=== PATIENT | female | born 2000 | race Hispanic/Latino ===

== ENCOUNTER 2024-08-24 16:51 | Emergency (ER) | payer MEDICAID, SELFPAY ==
--- NOTE | ~2024-08-24 | XR_ITS ---
EXAMINATION: XR ankle LT min 3V DATE: 08/24/2024 17:17 INDICATION: Left ankle pain post injury TECHNIQUE: Anteroposterior, oblique, mortise, and lateral views of the left ankle were obtained. COMPARISON: None. FINDINGS: Alignment is normal. No fracture. Joint spaces are well maintained. No ankle joint effusion. Soft t issue swelling about the lateral malleolus. IMPRESSION: 1. No osseous abnormality. Reviewed, dictated and finalized at location A. IMPRESSION: 1. No osseous abnormality.
--- NOTE | ~2024-08-24 | XR_ITS ---
HISTORY: Proximal tib-fib tenderness to palpation COMPARISON: None TECHNIQUE: 2 views of the left lower leg were performed FINDINGS: No acute or subacute fracture. Joint spaces are preserved and alignment is maintained. Soft tissues are unremarkable without foreign body or significant calcification. Age-appropriate mineralization. IMPRESSION: No acute fracture or dislocation. Reviewed, dictated and finalized at location A.
[2024-08-24 16:54] VITALS: BP 136/82; PULSE 85; RESP 17; TEMP 36.4; O2SAT 100
--- NOTE | 2024-08-24 17:08 | ED_ITS ---
HPI - Extremity Injury (Lower) General Chief Complaint: Extremity Injury, Lower <Anette Palacios APRN - Last Filed: 08/24/24 17:14> Stated Complaint: left ankle pain, fall <Anette Palacios APRN - Last Filed: 08/24/24 17: 14> Time Seen by Provider: 08/24/24 17:00 <Anette Palacios APRN - Last Filed: 08/24/24 17:14> Focused HPI: Patient is a 23-year-old female who presents to the ER after injuring her left ankle. She reports she was stepping down the stairs when her left foot turned outward and heard 3 pops. Patient endorses decreased range of motion and describes the current pain as ?burning. She denies any medical history relevant to this ER visit. Patient denies any calf pain, decreased range of motion in her left knee, hip pain. GENERAL: Well-appearing, well-nourished, and in no acute distress. HEAD: Normocephalic, atraumatic. CHEST: Clear to auscultation. ?No respiratory distress. HEART: Regular rate and rhythm.? NEURO: ?Alert and oriented x3. Patient screened in triage and initial orders placed.? ?Additional care and disposition to be based upon?diagnostic testing and treatment. <Anette Palacios APRN - Last Filed: 08/24/24 17:14> Related Data Allergies/Adverse Reactions: Allergies Allergy/AdvReac Type Severity Reaction Status Date / Time No Known Drug Allergies Allergy Unknown Other Verified 02/28/19 12:00 <Anette Palacios APRN - Last Filed: 08/24/24 17:14> Review of Systems Review of Systems: All systems reviewed & are unremarkable except as noted in HPI and below <Randy Hurtado MD - Last Filed: 08/24/24 22:39> Exam Narrative: APPEARANCE: Well appearing, no pain, no distress, well-nourished. HEAD: normocephalic, atraumatic. EYES: PERRLA/EOMI, conjunctivae clear. NOSE: Normal no drainage EARS:TMS clear with good light reflex. THROAT: Pharynx clear, no exudate. NECK: Supple. No adenopathy, no masses. RESPIRATORY: Airway patent, respirations nonlabored. Clear to auscultation bilaterally, no rales, rhonchi, wheezing. CARDIOVASCULAR: Regular rate and rhythm without murmurs rubs or gallops. ABDOMINAL: Soft, nontender, nondistended, normal bowel sounds MUSCULOSKELETAL: Left lateral ankle fusion and tenderness to palpation <Randy Hurtado MD - Last Filed: 08/24/24 22:39> Course Vital Signs Vital signs: Vital Signs Temperature 97.5 F L 08/24/24 16:54 Pulse Rate 85 08/24/24 16:54 Respiratory Rate 17 08/24/24 16:54 Blood Pressure 136/82 08/24/24 16:54 Pulse Oximetry 100 08/24/24 16:54 Oxygen Delivery Room Air 08/24/24 16:54 Temperature 97.5 F L 08/24/24 16:54 Pulse Rate 78 08/24/24 21:44 Respiratory Rate 18 08/24/24 21:44 Blood Pressure 130/64 08/24/24 21:44 Pulse Oximetry 100 08/24/24 21:44 Oxygen Delivery Room Air 08/24/24 16:54 <Anette Palacios, JULEE - Last Filed: 08/24/24 17:14> Vital Signs Temperature 97.5 F L 08/24/24 16:54 Pulse Rate 85 08/24/24 16:54 Respiratory Rate 17 08/24/24 16:54 Blood Pressure 136/82 08/24/24 16:54 Pulse Oximetry 100 08/24/24 16:54 Oxygen Delivery Room Air 08/24/24 16:54 Temperature 97.5 F L 08/24/24 16:54 Pulse Rate 78 08/24/24 21:44 Respiratory Rate 18 08/24/24 21:44 Blood Pressure 130/64 08/24/24 21:44 Pulse Oximetry 100 08/24/24 21:44 Oxygen Delivery Room Air 08/24/24 16:54 <Randy Hurtado MD - Last Filed: 08/24/24 22:39> MDM - Extremity Injury (Lower) MDM Narrative Medical decision making narrative: 23-year-old female presents emergency department for evaluation left ankle pain. X-ray of the ankle showed no acute osseous abnormality. Patient did have proximal tib-fib tenderness. X-ray was negative for acute fracture dislocation. Patient was provided Larry wrap for increased support and crutches for nonweightbearing. <Randy Hurtado MD - Last Filed: 08/24/24 22:39> Differential Diagnosis Differential diagnosis: Likely ankle sprain and strain <Randy Hurtado MD - Last Filed: 08/24/24 22:39> Discharge Plan Discharge Clinical Impression: Ankle sprain and strain <Anette Palacios APRN - Last Filed: 08/24/24 17:14> Patient Disposition: Home, Self-Care <Anette Palacios APRN - Last Filed: 08/24/24 17:14> Condition: Stable <Anette Palacios APRN - Last Filed: 08/24/24 17:14> Instructions: Antibiotic Form, Ankle Sprain (DC), Crutch Instructions (ED) <Anette Palacios APRN - Last Filed: 08/24/24 17:14> Additional Instructions: Tylenol and ibuprofen for pain control. Crutches for limited weight- bearing. Larry wrap for comfort. Have close follow-up with your primary care physician. If you have any worsening symptoms then please call or return to the emergency department. <Anette Palacios APRN - Last Filed: 08/24/24 17:14> Patient Language: Ivorian <Anette Palacios APRN - Last Filed: 08/24/24 17:14> Follow-up/Referrals: PHYSICIAN,BIODIESEL TECHNOLOGY MANAGER [Primary Care Provider] - <Anette Palacios APRN - Last Filed: 08/24/24 17:14>
--- OUTSIDE RECORDS SUMMARY | 2024-08-24 18:55 | XMS_ITS | Clinical Summary ---
Author Organization [facility] Address [address] [place] [address] Care Team Providers Care Supervisor Die Casting Name Role Phone No, Physician Primary Care Provider [phone] Allergies Active Allergy Reactions Criticality Noted Date Comments Naproxen Hives Medium 01/25/2018 Medications traMADoL (ULTRAM) 50 mg tablet Take 1 tablet (50 mg total) by mouth every 6 (six) hours 20 tablet 0 Active EPINEPHrine (EpiPen) 0.3 mg/0.3 mL auto-injection syringeIndicati ons:Anaphylaxis Inject 0.3 mL (0.3 mg total) into the muscle as instructed as needed for anaphylaxis for up to 1 dose 1 Syringe 1 0 Active EPINEPHrine 0.3 mg/0.3 mL auto-injection syringeIndicati ons:Anaphylaxis Inject to outer thigh as needed for severe allergic reaction (examples, but not limited to: difficulty breathing, throat swelling) 2 Syringe 1 Active EPINEPHrine (EpiPen) 0.3 mg/0.3 mL auto-injection syringeIndicati ons:Anaphylaxis Inject 0.3 mL (0.3 mg total) into the muscle as instructed as needed for anaphylaxis 1 each 1 Active predniSONE (DELTASONE) 10 mg tablet Take 2 tablets (20 mg) by mouth daily 10 tablet 1 Active EPINEPHrine (EpiPen) 0.3 mg/0.3 mL auto-injection syringeIndicati ons:Anaphylaxis Inject 0.3 mL (0.3 mg total) into the muscle as instructed as needed for anaphylaxis 2 each 1 Active azithromycin (ZITHROMAX) 250 mg tabletIndicatio ns:Pneumonia, Community Acquired Take 1 tablet (250 mg total) by mouth daily Take first 2 tablets together, then 1 every day until finished. 6 tablet 3 Active dextromethorpha n-guaiFENesin (ROBITUSSIN-DM) 2-20 mg/mL liquid Take 5 mL by mouth every 12 (twelve) hours 120 mL 3 Active Active Problems No known active problems Surgical History Surgery Date Site/Laterality Comments CHOLECYSTECTOMY SECTION Medical History Medical History Date Comments Known health problems: none Social History Tobacco Use Types Packs/Day Years Used Date Smoking Tobacco: Never Smokeless Tobacco: Never Alcohol Use Standard Drinks/Week Comments Yes 0 (1 standard drink = 0.6 oz pur e alcohol) Personal Safety Answer Date Recorded Getting School Help Needed Not on file 03/15 Comments No Sex and Gender Information Value Date Recorded Sex Assigned at Not on file 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 Gender Identity Not on file Sexual Orientation Not on file Obstetrics History Last Filed Vital Signs Vital Sign Reading Time Taken Comments Blood Pressure 137/85 03/08/2023 5:26 PM CDT Pulse 78 03/08/2023 5:26 PM CDT Temperature 36.2 C (97.2 F) 03/08/2023 5:26 PM CDT Respiratory Rate 16 03/08/2023 5:26 PM CDT Oxygen Saturation 98% 03/08/2023 5:26 PM CDT Inhaled Oxygen Concentration - - Weight 86.2 kg (190 lb) 03/08/2023 12:03 PM CDT Height 154.9 cm (5' 1 ) 03/08/2023 12:03 PM CDT Body Mass Index 35.9 03/08/2023 12:03 PM CDT Plan of Treatment Health Maintenance Due Date Last Done Comments Cervical Cancer Screening 1998 Depression Screening 1998 Hepatitis C Screening 1998 Regular Well Visit/Exam 18-64 2016 Influenza Vaccine (#1) 2024 9, 05/15/2017, 06/15/2016, Additional history exists DTaP/Tdap/Td Vaccine (8 - Td or Tdap) 06/14/2026 06/14/2016, 10/04/2012, 01/28/2003, Additional history exists Hepatitis B Screening Completed 09/12/1999 , 09/12/1999, 09/12/1999, Additional history exists Varicella Vaccines Completed 11/03/2003, 09/12/1999 HPV Vaccines Completed 08/26/2013, 08/08, 11/07/2012, Additional history exists Pneumococcal vaccine <65 Aged Out No longer eligible based on patient's age to complete this topic Insurance [facility] MEDICAID [facility] OTHER Address: [address] [address] [place] [address] [facility]FL [facility] CHOICE PLUS Care Teams Supervisor Die Casting Relationship Specialty Start Date End Date No, Physician PCP - General 05/16/18
--- OUTSIDE RECORDS SUMMARY | 2024-08-24 18:55 | XMS_ITS | Encounter Summary ---
Author Organization [facility] Address [address] [place] [address] Care Team Providers Care Director Of Recruiting Name Role Phone Montez External Provider Primary Care Provider Hua loredo Encounter Details Date Type Department Care Team (Late st Contact Info) Description 01/28/2003 Outpatient Historical [facility] Family Medicine [facility] [address] [facility] [address] [place] [address] [place] [address] 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
--- OUTSIDE RECORDS SUMMARY | 2024-08-24 18:55 | XMS_ITS | Referral Summary ---
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 CHOICE PLUS [facility] HMO/PPO Address: [address] [address] [place] [address] Care Teams Service Provider Relationship Specialty Start Date End Date No, Physician PCP - General 05/16/18
--- OUTSIDE RECORDS SUMMARY | 2024-08-24 18:55 | XMS_ITS | Encounter Summary ---
Author Organization [facility] Address [address] [place] [address] Care Team Providers Care Director Power Name Role Phone [facility], External Provider Primary Care Provider Hua loredo Encounter Details Date Type Department Care Team (Late st Contact Info) Description 12/16/2006 Outpatient Historical [facility] Family Medicine [facility] [address] [facility] [address] [place] [address] Jeanine Adams MD [address] [place] [address] [place] [address] Social History Tobacco Use Types Packs/Day Years Used Date Smoking Tobacco: Never Assessed Comments Unknown Sex and Gender Information Value Date Recorded Sex Assigned at Not on file Legal Sex Female 4:16 AM 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
--- OUTSIDE RECORDS SUMMARY | 2024-08-24 18:55 | XMS_ITS | Encounter Summary ---
Author Organization [email or web address] Address 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
--- OUTSIDE RECORDS SUMMARY | 2024-08-24 18:55 | XMS_ITS | Encounter Summary ---
Author Organization [employer] Address [address] [place] [address] Care Team Providers Care Ward Nurse Name Role Phone [facility] Primary Care Provider Hua loredo Encounter Details Date Type Department Care Team (Late st Contact Info) Description 10/13/2008 Outpatient Historical [place] [address] [place] [address] Social History Tobacco Use Types Packs/Day Years Used Date Smoking Tobacco: Never Alcohol Use Standard Drinks/Week Comments No 0 (1 standard drink = 0.6 oz pur e alcohol) Comments No Sex and Gender Information Value Date Recorded Sex Assigned at Not on file 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
--- OUTSIDE RECORDS SUMMARY | 2024-08-24 18:55 | XMS_ITS | Encounter Summary ---
Author Organization [facility] Address [address] [place] [address] Care Team Providers Care Global Transportation Manager Name Role Phone [facility], [facility] Provider Primary Care Provider Hua loredo Encounter Details Date Type Department Care Team (Late st Contact Info) Description 11/03/2003 Outpatient Historical [facility] Medicine [facility] [address] [facility] [address] [place] [address] [place] [address] [place] [address] Social History Tobacco Use Types Packs/Day Years Used Date Smoking Tobacco: Never Assessed Comments Unknown Sex and Gender Information Value Date Recorded Sex Assigned at Not on file Legal Sex Female 4:16 AM EQUINE BREEDER Gender Identity Not on file Sexual Orientation Not on file documented as of this encounter Plan of Treatment Not on file documented as of this encounter Procedures Procedure Name Priority Date/Time Associated Diagnosis Comments CHG VARICELLA VACCINE LIVE SQ VFC 11/03/2003 12:00 AM CDT documented in this encounter Visit Diagnoses Not on filedocumented in this encounter Care Teams Global Transportation Manager Relationship Specialty Start Date End Date Montez, External [place] [address] PCP - General 04/05/17 documented as of this encounter
--- OUTSIDE RECORDS SUMMARY | 2024-08-24 18:55 | XMS_ITS | Encounter Summary ---
Author Organization [employer] Address [address] [place] [address] Care Team Providers Care Candy Dipper Hand Name Role Phone 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 Gender Identity Not on file Sexual Orientation Not on file documented as of this encounter Plan of Treatment Not on file documented as of this encounter Procedures Procedure Name Priority Date/Time Associated Diagnosis Comments CBC WITH DIFFERENTIAL Routine 12/18/2006 3:59 PM CDT CBC WITH DIFFERENTIAL Routine 12/18/2006 3:59 PM CDT CBC WITH DIFFERENTIAL Routine 12/18/2006 3:59 PM CDT URINALYSIS WITH MICROSCOPIC Routine 12/18/2006 3:39 PM CDT documented in this encounter Results * (ABNORMAL) CBC WITH DIFFERENTIAL (12/18/2006 3:59 PM CDT) NEUTROPHIL ABSOLUTE 6.83 K/uL INTERFACE SYSTEM LYMPHOCYTE ABSOLUTE 3.04 K/uL INTERFACE SYSTEM MONOCYTE ABSOLUTE 0.11 K/uL INTERFACE SYSTEM EOSINOPHIL ABSOLUTE 0.53 K/uL INTERFACE SYSTEM BASOPHILS ABSOLUTE 0.00 K/uL INTERFACE SYSTEM NEUTROPHILS, SEG 64 36 - 74 % INTERFACE SYSTEM BANDS 1 0 - 4 % INTERFACE SYSTEM LYMPHOCYTES 28 18 - 53 % INTERFAC E SYSTEM MONOCYTES 1(L) 2 - 13 % INTERFACE SYSTEM EOSINOPHILS 5 2 - 12 % INTERFAC E SYSTEM BASOPHILS 0 0 - 3 % INTERFACE SYSTEM ATYPICAL LYMPHOCYTE 1 0 - 5 % INTERFACE SYSTEM PLATELET EST. Consistent w/ count Normal INTERFACE SYSTEM RBC MORPHOLOGY Normal Normal INTER FACE SYSTEM 12/18/2006 3:59 PM CDT Carmen Mary MD HEMATOLOGY ORDERABLES Edit ed Performing Organization Address [facility] de Phone Number INTERFACE SYSTEM Refer to clinic/hospital department * CBC WITH DIFFERENTIAL (12/18/2006 3:59 PM CDT) [facility] NRBC 0 <=0 /100 WBC INTERFACE SYSTEM 12/18/2006 3:59 PM CDT us Carmen Mary MD HEMATOLOGY ORDERABLES Edit ed Performing Organization Address [facility] Phone Number INTERFACE SYSTEM Refer to clinic/hospital department * (ABNORMAL) CBC WITH DIFFERENTIAL (12/18/2006 3:59 PM CDT) [facility] WBC 10.5 4.5 - 13.5 K/uL INTERFACE SYSTEM RBC 5.29(H) 4.00 - 5.20 M/uL INTERFACE SYSTEM HEMOGLOBIN 15.2 11.5 - 15.5 g/dL INTERFACE SYSTEM HEMATOCRIT 41.6 35.0 - 45.0 % INTERFACE SYSTEM MCV 78.6 77.0 - 95.0 fL INTERFACE SYSTEM MCH 28.7 24.0 - 30.0 pg INTERFACE SYSTEM MCHC 36.5(H) 30.0 - 36.0 % INTERFACE SYSTEM RDW 12.7 11.5 - 14.5 % INTERFACE SYSTEM RDW-STDEV 35.9(L) 37.1 - 48.7 fL INTERFACE SYSTEM PLATELETS 360(H) 140 - 350 K/uL INTERFACE SYSTEM MPV 9.9 9.3 - 12.4 fL INTERFACE SYSTEM 12/18/2006 3:59 PM CDT Carmen Mary MD HEMATOLOGY ORDERABLES Edit ed Performing Organization Address [facility] Co de Phone Number INTERFACE SYSTEM Refer to clinic/hospital department * (ABNORMAL) URINALYSIS WITH MICROSCOPIC (12/18/2006 3:39 PM CDT) COLOR UA Yellow INTERFACE SYSTEM CLARITY UA Cloudy(A) Clear INTERFACE SYSTEM SPECIFIC GRAVITY UA 1.023 1.001 - 1.035 INTERFACE SYSTEM PH UA 8.0 5.0 - 8.0 INTERFACE SYSTEM LEUKOCYTE ESTERASE UA Trace(A) Negative INTERFACE SYSTEM NITRITE UA Negative Negative INTERFACE SYSTEM PROTEIN UA Trace(A) Negative INTERFACE SYSTEM GLUCOSE UA Negative Negative INTERFACE SYSTEM KETONES UA Negative Negative INTERFACE SYSTEM UROBILINOGEN UA <1 <=1 mg/dL INTE RFACE SYSTEM BILIRUBIN UA Negative Negative INTERFA CE SYSTEM BLOOD UA Negative Negative INTERFACE SYSTEM WBC UA 4 0 - 5 /HPF INTERFACE SYSTEM RBC UA 4 0 - 4 /HPF INTERFACE SYSTEM AMORPHOUS CRYSTAL Rare /HPF INTERFACE SYSTEM 12/18/2006 3:39 PM CDT Carmen Mary MD URINE ORDERABLES Edited Performing Organization Address [facility] Co de Phone Number INTERFACE SYSTEM Refer to clinic/hospital department documented in this encounter Visit Diagnoses Diagnosis Abdominal pain, unspecified site- Primary documented in this encounter Care Teams Candy Dipper Hand Relationship Specialty Start Date End Date [facility], External Provider [address] [place] [address] PCP - General 04/05/17 documented as of this encounter
--- OUTSIDE RECORDS SUMMARY | 2024-08-24 18:55 | XMS_ITS | Encounter Summary ---
Author Organization [facility] Address [address] [place] [address] Care Team Providers Care Pitch Flaker Name Role Phone [facility] External Provider Primary Care Provider Hua loredo Encounter Details Date Type Department Care Team (Late st Contact Info) Description 12/16/2006 Outpatient Historical [facility] Family Medicine [facility] [address] [place] [address] Jeanine Adams MD [address] [place] [address] [place] [address] Social History Tobacco Use Types Packs/Day Years Used Date Smoking Tobacco: Never Assessed Comments Unknown Sex and Gender Information Value Date Recorded Sex Assigned at Not on file 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
--- OUTSIDE RECORDS SUMMARY | 2024-08-24 18:55 | XMS_ITS | Encounter Summary ---
Author Organization [employer] Address [address] [place] [address] Care Team Providers Care Political Anthropologist Name Role Phone 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, External Provider [address] [place] [address] PCP - General 04/05/17 documented as of this encounter
--- OUTSIDE RECORDS SUMMARY | 2024-08-24 18:55 | XMS_ITS | Encounter Summary ---
Author Organization [facility] Address [address] [place] [address] Care Team Providers Care Rn Home Care Name Role Phone [facility], External Provider Primary Care Provider Hua loredo Encounter Details Date Type Department Care Team (Late st Contact Info) Description 10/23/2005 Outpatient Historical [facility] Medicine [facility] [address] [facility] [address] [place] [address] Melissa Vásquez MD [address] [place] [address] Social History Tobacco Use Types Packs/Day Years Used Date Smoking Tobacco: Never Assessed Comments Unknown Sex and Gender Information Value Date Recorded Sex Assigned at Not on file 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 Gender Identity Not on file Sexual Orientation Not on file documented as of this encounter Last Filed Vital Signs Vital Sign Reading Time Taken Comments Blood Pressure - - Pulse - - Temperature 37.1 C (98.7 F) 10/23/2005 11:30 AM CDT Respiratory Rate - - Oxygen Saturation - - Inhaled Oxygen Concentration - - Weight 32.7 kg (72 lb) 10/23/2005 11:30 AM CDT Height - - Body Mass Index - - documented in this encounter Plan of Treatment Not on file documented as of this encounter Visit Diagnoses Not on filedocumented in this encounter Care Teams Rn Home Care Relationship Specialty Start Date End Date Leana, External Provider [address] [place] [address] PCP - General 04/05/17 documented as of this encounter
--- OUTSIDE RECORDS SUMMARY | 2024-08-24 18:55 | XMS_ITS | Clinical Summary ---
Author Organization [facility] Address [address] [place] [address] Care Team Providers Care Systems Navigator Name Role Phone [facility], External Provider Primary Care Provider U navailable Allergies Active Allergy Reactions Criticality Noted Date Comments Naproxen Sodium Hives High 06/23/2017 Medications No known medications Active Problems Problem Noted Date Diagnosed Date Bilateral ovarian cysts 12/24/2011 Grief 12/07/2011 Overview (12/07/2011): 12/06/11 - father recently from liver cancer Depression 12/07/2011 Abdominal pain, generalized 12/07/2011 Trigger point with back pain 12/07/2011 Family history of liver cancer 07/13/2011 Overview (07/13/2011): Father diagnosed with terminal liver cancer at age 38 Heartburn 07/13/2011 Allergic rhinitis 07/14/2008 Eczema 07/14/2008 Resolved Problems Problem Noted Date Diagnosed Date Resolved Date Pain in joint, shoulder region 04/04/2011 07/13/2011 Headache(784.0) 07/14/2008 07/13/2011 Urinary tract infection, site not specified 12/30/2006 07/13/2011 Need for prophylactic vaccin ation and inoculation against viral hepatitis 12/16/200609/2008 Need for other specified pro phylactic vaccination against single bacterial disease 12/16/2006 07/14/2008 Routine or child health check 10/11/2004 07/14/2008 Immunizations Immunization Administration Dates Next Due (GARDASIL)(9-45 YRS) HUMAN PAPILLOMAVIRUS VACCINE, TYPES 6, 11, 16, 18, QUADRIVALENT (4VHPV), 3 DOSE, IM 07/13/2011 (HAVRIX/VAQTA)(12 MO-18 YRS) HEPATITIS A VACCINE 0.5 ML PED/ADOL 2 DOSE, IM 07/13/2011,12/16/2006 (INFANRIX)(6 WKS-6 YRS) DIPT HERIA, TETANUS TOXOIDS, AND ACCELLULAR PERTUSSIS VACCINE (DTAP), 0.5 ML IM 01/28/2003,11/11/2000,03/13/1999,01/27,1998 (IPOL)(6 WKS AND UP) POLIOVI DONNA VACCINE, INACTIVATED (IPV), 3 DOSE, SUBCUT OR IM 01/28/2003,09/12/1999,01/27/1999,11/09 (M-M-R II/PRIORIX)(12 MO UP) MEASLES, MUMPS AND RUBELLA VIRUS VACCINE, 0.5 ML IM/SUBCUT 01/28/2003,09/12/1999 (VARIVAX)(12 MOS UP)VARICELL A VIRUS VACCINE (PF) 0.5 ML, SUB CUT 11/03/2003,09/12/1999 HIB, Unspecified Formulation 11/11/2000, 03/13/1999,01/27/1999,11/09 Hepatitis B Vaccine 09/12/1999,1998,1998 Family History Medical History Relation Name Comments Healthy Brother Cancer Father liver cancer Liver Disease Father Healthy Mother Healthy Sister Relation Name Status Comments Brother Alive Father Mother Alive Sister Alive Social History Tobacco Use Types Packs/Day Years Used Date Smoking Tobacco: Never Smokeless Tobacco: Never Alcohol Use Standard Drinks/Week Comments No 0 (1 standard drink = 0.6 oz pur e alcohol) Comments No Sex and Gender Information Value Date Recorded Sex Assigned at Not on file Legal Sex Female 4:16 AM CASUALTY 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 SUPERVISOR Gender Identity Not on file Sexual Orientation Not on file Occupation Industry Job Start Date Job End Date Not on file Not on file Not on file Not on file Last Filed Vital Signs Vital Sign Reading Time Taken Comments Blood Pressure 128/66 06/23/2017 3:45 PM CASUALTY CLAIMS SUPERVISOR Pulse 86 04/05/2017 9:11 AM CDT Temperature 36.6 C (97.8 F) 06/23/2017 12:24 PM CASUALTY CLAIMS SUPERVISOR Respiratory Rate 16 06/23/2017 3:45 PM CASUALTY CLAIMS SUPERVISOR Oxygen Saturation 99% 06/23/2017 3:45 PM CASUALTY CLAIMS SUPERVISOR Inhaled Oxygen Concentration - - Weight 83 kg (183 lb) 06/23/2017 12:24 PM CASUALTY CLAIMS SUPERVISOR Height 154.9 cm (5' 1 ) 06/23/2017 12:24 PM CASUALTY CLAIMS SUPERVISOR Body Mass Index 34.58 06/23/2017 12:24 PM CASUALTY CLAIMS SUPERVISOR Plan of Treatment Health Maintenance Due Date Last Done Comments DTAP/TDAP/TD VACCINES (6 - Tdap) 2009 01/28/2003, 11/11/2000, 03/13/1999, Additional history exists HPV VACCINES (2 - 2-dose series) 01/11/2012 07/13/19 12 CERVICAL CANCER SCREENING 09/04/2019 INFLUENZA VACCINE (#1) 2024 HEPATITIS B VACCINES Completed 09/12/1999, 1998, 1998 Advance Directives For more information, please contact: [phone] * Full Code (Latest Code Status on File) Date Activated Date Inactivated Comments 01/04/2012 10:25 AM 01/07/2012 11:50 AM Care Teams Systems Navigator Relationship Specialty Start Date End Date [facility], External Provider [address] [place] [address] PCP - General 04/05/17
--- OUTSIDE RECORDS SUMMARY | 2024-08-24 18:55 | XMS_ITS | Encounter Summary ---
Author Organization [facility] [facility] Address [address] [place] [address] Care Team Providers Care Wood Experimental Mechanic Name Role Phone [facility] External Provider Primary Care Provider Hua loredo Encounter Details Date Type Department Care Team (Late st Contact Info) Description 09/02/2000 Outpatient Historical [facility] [place] [address] [place] [address] Social History Tobacco Use Types Packs/Day Years Used Date Smoking Tobacco: Never Assessed Comments Unknown Sex and Gender Information Value Date Recorded Sex Assigned at Not on file Legal Sex Female 4:16 AM QA LEAD Gender Identity Not on file Sexual Orientation Not on file documented as of this encounter Plan of Treatment Not on file documented as of this encounter Visit Diagnoses Not on filedocumented in this encounter Care Teams Wood Experimental Mechanic Relationship Specialty Start Date End Date [facility], External Provider [address] [place] [address] PCP - General 04/05/17 documented as of this encounter
--- OUTSIDE RECORDS SUMMARY | 2024-08-24 18:55 | XMS_ITS | Encounter Summary ---
Author Organization [facility] Address [address] [place] [address] Care Team Providers Care Hotel Or Motel Manager Name Role Phone Leana External Provider Primary Care Provider Hua loredo Encounter Details Date Type Department Care Team (Late st Contact Info) Description 06/02/2002 Outpatient Historical [facility] Indu Bliss MD NO ADDRESS ON FILE Er, Authorized P NO ADDRESS ON FILE FEVER (Primary Dx) Social History Tobacco Use Types Packs/Day Years Used Date Smoking Tobacco: Never Assessed Comments Unknown Sex and Gender Information Value Date Recorded Sex Assigned at Not on file Legal Sex Female 4:16 AM E MAIL SYSTEM ADMINISTRATOR Gender Identity Not on file Sexual Orientation Not on file documented as of this encounter Plan of Treatment Not on file documented as of this encounter Visit Diagnoses Diagnosis Fever and other physiologic disturbances of temperature regulation- Primary documented in this encounter Care Teams Hotel Or Motel Manager Relationship Specialty Start Date End Date Leana External Provider [address] [place] [address] PCP - General 04/05/17 documented as of this encounter
--- OUTSIDE RECORDS SUMMARY | 2024-08-24 18:55 | XMS_ITS | Encounter Summary ---
Author Organization [facility] Address [address] [place] [address] Care Team Providers Care Nursery School Teacher Name Role Phone [facility], External Provider Primary Care Provider Hua loredo Encounter Details Date Type Department Care Team (Late st Contact Info) Description 11/04/1999 Outpatient Historical [facility] Rafal Ahuja MD [address] [facility] [address] [place] [address] Er, Authorized P NO ADDRESS ON FILE Unspecified viral infection, in conditions classified elsewhere and of unspecified site (Primary Dx) Social History Tobacco Use Types Packs/Day Years Used Date Smoking Tobacco: Never Assessed Comments Unknown Sex and Gender Information Value Date Recorded Sex Assigned at Not on file Legal Sex Female 4:16 AM RN CASE MANAGER Gender Identity Not on file Sexual Orientation Not on file documented as of this encounter Plan of Treatment Not on file documented as of this encounter Visit Diagnoses Diagnosis Unspecified viral infection, in conditions classified elsewhere and of unspecified site- Primary documented in this encounter Care Teams Nursery School Teacher Relationship Specialty Start Date End Date Leana, External Provider [address] [place] [address] PCP - General 04/05/17 documented as of this encounter
--- OUTSIDE RECORDS SUMMARY | 2024-08-24 18:55 | XMS_ITS | Encounter Summary ---
Author Organization [facility] Address [address] [place] [address] Care Team Providers Care Rn Research Name Role Phone [facility] Primary Care Provider Hua loredo Encounter Details Date Type Department Care Team (Late st Contact Info) Description 01/28/2003 Outpatient Historical [facility] Family Medicine [facility] [address] [address] [facility] [address] [place] [address] [place] [address] [address] [facility] [place] [address] Social History Tobacco Use Types Packs/Day Years Used Date Smoking Tobacco: Never Assessed Comments Unknown Sex and Gender Information Value Date Recorded Sex Assigned at Not on file Legal Sex Female 4:16 AM DOCUMENT CONTROL MANAGER Gender Identity Not on file Sexual Orientation Not on file documented as of this encounter Plan of Treatment Not on file documented as of this encounter Procedures Procedure Name Priority Date/Time Associated Diagnosis Comments CHG MMR VACCINE SQ VFC 01/28/2003 12:00 AM CDT CHG DTAP VACCINE <7 YO IM VFC 01/28/2003 12:00 AM CDT documented in this encounter Visit Diagnoses Not on filedocumented in this encounter Care Teams Rn Research Relationship Specialty Start Date End Date [facility], [place] [address] [place] [address] PCP - General 04/05/17 documented as of this encounter
--- OUTSIDE RECORDS SUMMARY | 2024-08-24 18:55 | XMS_ITS | Encounter Summary ---
Author Organization [facility] Address [address] [place] [address] Care Team Providers Care Ophthalmic Asst Name Role Phone [facility] External Provider Primary Care Provider Hua loredo Encounter Details Date Type Department Care Team (Late st Contact Info) Description 07/13/2002 Outpatient Historical [facility] Family Medicine [facility] [address] [facility] [address] [place] [address] [place] [address] [place] [address] Social History Tobacco Use Types Packs/Day Years Used Date Smoking Tobacco: Never Assessed Comments Unknown Sex and Gender Information Value Date Recorded Sex Assigned at Not on file Legal Sex Female 4:16 AM HOSPITALITY HOUSEKEEPER Gender Identity Not on file Sexual Orientation Not on file documented as of this encounter Plan of Treatment Not on file documented as of this encounter Visit Diagnoses Not on filedocumented in this encounter Care Teams Ophthalmic Asst Relationship Specialty Start Date End Date Leana, External [place] [address] PCP - General 04/05/17 documented as of this encounter
--- OUTSIDE RECORDS SUMMARY | 2024-08-24 18:55 | XMS_ITS | Data Portability ---
Author Organization [facility] SAMANTHAKaterin Skelton Address [address] [facility] [place] [address] Care Team Providers Care Eligibility Specialist Name Role Phone LENNIE CHAMPION Primary Care Provider [phone] Assessment No assessment recorded. Plan of Treatment Reminders Order Date Submit Date Provider Last Modified By Organization Details Last Modified Time Details Appointments None recorded. Lab HbA1c (hemoglobin A1c), blood 2014 015 MARTY LAU, Jaycee arcadio Bagley, [facility] [address], [place], [address], 5 07:43:20 TSH + free T4, serum 2014 015 MARTY LAU, Jaycee arcadio Bagley, [address], [place], [address], 5 07:43:17 cholesterol + triglycerid es, serum 2014 015 MARTY LAU, Jaycee arcadio Bagley, [facility] [address], [place], [address], 5 07:43:19 CBC 2014 015 MARTY LAU, Jaycee arcadio Bagley, [address], [place], [address], 5 07:43:18 CMP, serum or plasma 2014 015 [facility], [address], [place], [address], 5 07:43:19 Referral pediatric neurologist referral 2014 015 [email or web address] [facility] ([facility]), [address] [place], [address], 5 09:05:22 Procedures None recorded. Surgeries None recorded. Imaging CT, head and brain - Dx: worsening headaches, WITHOUT CONTRAST 2014 015 MARTY Not available 5 16:36:26 Medication Orders prednisone 20 mg tablet 2014 015 [facility] #[id number], [address], [place], [place], [id number], 5 14:04:46 mupirocin 2 % topical ointment 2014 015 [facility] #[id number], [address], [place], [place], [id number], 5 14:04:46 hydrocortis one 1 % topical cream 2014 015 [facility] #[id number], [address], [place], [place], [id number], 5 15:28:55 triamcinolo ne acetonide 0.1 % topical cream 2014 015 [facility] #[id number], [address], [place], [place], [id number], 5 14:50:00 Patient TargetsNo targets recorded. Patient Instructions Encounter Date Encounter Id Patient Instructions Last Modified By Organization Details Last Modified Time 08/09/2014 [id number] rash in children : care instructions [email or web address] Not available 08/09/2014 14:50:00 10/05/2014 [id number] headache in children: care instructions avallala Not available 10/11/2014 14:04:45 04/27/2015 [id number] your child WHO I S overweight: care instructions [email or web address] Not available 04/27/2015 15:27:15 when your child IS overweight: care instructions Not available 04/27/2015 15:27:15 headache in children: care instructions [email or web address] Not available 04/27/2015 15:27:15 Reason for Referral Pediatric Neurologist Referr al for Headache Referring Physician: Quinton Ko, Pediatric Medicine, Encounter Date: 04/27/2015 Results Created Date Observation Date Name Description Value Unit Range Abnormal Flag Note LastModifiedBy Organization Detail LastModifiedTime 04/27/20 15 04/28/2015 TSH + free T4, serum TSH 1.520 uIU/m L 0.450- 4.500 Not Available [facility] ([facility]) [address] [place], [address], 04/28/2015 07:43:17 04/27/20 15 04/28/2015 TSH + free T4, serum T4,free(dire ct) 1.21 NG/dL 0.93-1 .60 Not Available [facility] ([facility]) [address] [place], [address], 04/28/2015 07:43:17 04/27/20 15 04/28/2015 CBC WBC 9.8 x10e3 /uL 3.4-10 .8 Not Available [facility] ([facility]) [address] [place], [address], 04/28/2015 07:43:18 04/27/20 15 04/28/2015 CBC RBC 4.92 x10e6 /uL 3.77-5 .28 Not Available [facility] ([facility]) [address] [place], [address], 04/28/2015 07:43:18 04/27/20 15 04/28/2015 CBC hemoglobin 12.7 g/dL 11.1-1 5.9 Not Available [facility] ([facility]) [address] [place], [address], 04/28/2015 07:43:18 04/27/20 15 04/28/2015 CBC hematocrit 39.0 % 34.0-4 6.6 Not Available [facility] ([facility]) [address] [place], [address], 04/28/2015 07:43:18 04/27/20 15 04/28/2015 CBC MCV 79 fL 79-97 Not Available [facility] ([facility]) [address] [facility] [place], [address], 04/28/2015 07:43:18 04/27/20 15 04/28/2015 CBC MCH 25.8 pg 26.6-3 3.0 below low normal Not Available [facility] ([facility]) [address] [facility] [place], [address], 04/28/2015 07:43:18 04/27/20 15 04/28/2015 CBC MCHC 32.6 g/dL 31.5-3 5.7 Not Available [facility] ([facility]) [address] [facility] [place], [address], 04/28/2015 07:43:18 04/27/20 15 04/28/2015 CBC RDW 15.1 % 12.3-1 5.4 Not Available [facility] ([facility]) [address] [facility] [place], [address], 04/28/2015 07:43:18 04/27/20 15 04/28/2015 CBC platelets 423 x10e3 /uL 150-37 9 above high normal Not Available [facility] ([facility]) [address] [facility] [place], [address], 04/28/2015 07:43:18 04/27/20 15 04/28/2015 CBC neutrophils 72 % Not Avai lable [facility] ([facility]) [address] [facility] [place], [address], 04/28/2015 07:43:18 04/27/20 15 04/28/2015 CBC lymphs 20 % Not Available [facility] ([facility]) [address] [place], [address], 04/28/2015 07:43:18 04/27/20 15 04/28/2015 CBC monocytes 6 % Not Availa ble [facility] ([facility]) [address] [place], [address], 04/28/2015 07:43:18 04/27/20 15 04/28/2015 CBC eos 2 % Not Available [facility] ([facility]) [address] [place], [address], 04/28/2015 07:43:18 04/27/20 15 04/28/2015 CBC basos 0 % Not Available [facility] ([facility]) [address] [place], [address], 04/28/2015 07:43:18 04/27/20 15 04/28/2015 CBC immature cells HOME INSURANCE AGENT Not Available [facility] ([facility]) [address] [place], [address], 04/28/2015 07:43:18 04/27/20 15 04/28/2015 CBC neutrophils (absolute) 6.9 x10e3 /uL 1.4-7. 0 Not Available [facility] ([facility]) [address] [place], [address], 04/28/2015 07:43:18 04/27/20 15 04/28/2015 CBC lymphs (absolute) 2.0 x10e3 /uL 0.7-3. 1 Not Available [facility] ([facility]) [address] [place], [address], 04/28/2015 07:43:18 04/27/20 15 04/28/2015 CBC monocytes(ab solute) 0.6 x10e3 /uL 0.1-0. 9 Not Available [facility] ([facility]) [address] [facility] [place], [address], 04/28/2015 07:43:18 04/27/20 15 04/28/2015 CBC eos (absolute) 0.2 x10e3 /uL 0.0-0. 4 Not Available [facility] ([facility]) [address] [facility] [place], [address], 04/28/2015 07:43:18 04/27/20 15 04/28/2015 CBC baso (absolute) 0.0 x10e3 /uL 0.0-0. 3 Not Available [facility] ([facility]) [address] [facility] [place], [address], 04/28/2015 07:43:18 04/27/20 15 04/28/2015 CBC immature granulocytes 0 % Not Available [facility] ([facility]) [address] [facility] [place], [address], 04/28/2015 07:43:18 04/27/20 15 04/28/2015 CBC immature grans (abs) 0.0 x10e3 /uL 0.0-0. 1 Not Available [facility] ([facility]) [address] [facility] [place], [address], 04/28/2015 07:43:18 04/27/20 15 04/28/2015 CBC NRBC HOME INSURANCE AGENT Not Available [facility] ([facility]) [address] [facility] [place], [address], 04/28/2015 07:43:18 04/27/20 15 04/28/2015 CBC hematology comments: HOME INSURANCE AGENT Not Available [facility] ([facility]) [address] [facility] [place], [address], 04/28/2015 07:43:18 04/27/20 15 04/28/2015 CMP, serum or plasm a glucose, serum 74 mg/dL 65-99 Not Available [facility] ([facility] [address] [facility] [place], [address], 04/28/2015 07:43:18 04/27/20 15 04/28/2015 CMP, serum or plasm a BUN 10 mg/dL 5-18 Not Available [facility] ([facility]) [address] [place], [address], 04/28/2015 07:43:18 04/27/20 15 04/28/2015 CMP, serum or plasm a creatinine, serum 0.67 mg/dL 0.57-1 .00 Not Available [facility] ([facility]) [address] [place], [address], 04/28/2015 07:43:18 04/27/20 15 04/28/2015 CMP, serum or plasm a BUN/creatini ne ratio 15 9-25 Not Available [facility] ([facility]) [address] [place], [address], 04/28/2015 07:43:18 04/27/20 15 04/28/2015 CMP, serum or plasm a sodium, serum 141 mmol/ L 134-14 4 Not Available [facility] ([facility]) [address] [place], [address], 04/28/2015 07:43:18 04/27/20 15 04/28/2015 CMP, serum or plasm a potassium, serum 4.7 mmol/ L 3.5-5. 2 Not Available [facility] ([facility]) [address] [place], [address], 04/28/2015 07:43:18 04/27/20 15 04/28/2015 CMP, serum or plasm a chloride, serum 102 mmol/ L 97-108 Not Available [facility] ([facility]) [address] [place], [address], 04/28/2015 07:43:18 04/27/20 15 04/28/2015 CMP, serum or plasm a carbon dioxide, total 23 mmol/ L 18-29 Not Available [facility] ([facility]) [address] [facility], [place], [address], 04/28/2015 07:43:18 04/27/20 15 04/28/2015 CMP, serum or plasm a calcium, serum 9.3 mg/dL 8.9-10 .4 Not Available [facility] ([facility]) [address] [facility] [place], [address], 04/28/2015 07:43:18 04/27/20 15 04/28/2015 CMP, serum or plasm a protein, total, serum 6.9 g/dL 6.0-8. 5 Not Available [facility] ([facility]) [address] [facility] [place], [address], 04/28/2015 07:43:18 04/27/20 15 04/28/2015 CMP, serum or plasm a albumin, serum 4.5 g/dL 3.5-5. 5 Not Available [facility] ([facility]) [address] [facility], [place], [address], 04/28/2015 07:43:18 04/27/20 15 04/28/2015 CMP, serum or plasm a globulin, total 2.4 g/dL 1.5-4. 5 Not Available [facility] ([facility]) [address] [facility], [place], [address], 04/28/2015 07:43:18 04/27/20 15 04/28/2015 CMP, serum or plasm a A/G ratio 1.9 1.1-2. 5 Not Available [facility] ([facility]) [address] [facility] [place], [address], 04/28/2015 07:43:18 04/27/20 15 04/28/2015 CMP, serum or plasm a bilirubin, total 0.3 mg/dL 0.0-1. 2 Not Available [facility] ([facility]) [address] [place], [address], 04/28/2015 07:43:18 04/27/20 15 04/28/2015 CMP, serum or plasm a alkaline phosphatase, S 78 IU/L 49-108 Not Available [facility] ([facility]) [address] [place], [address], 04/28/2015 07:43:18 04/27/20 15 04/28/2015 CMP, serum or plasm a AST (SGOT) 17 IU/L 0-40 Not Available [facility] ([facility]) [address] [place], [address], 04/28/2015 07:43:18 04/27/20 15 04/28/2015 CMP, serum or plasm a ALT (SGPT) 16 IU/L 0-24 Not Available [facility] ([facility]) [address] [place], [address], 04/28/2015 07:43:18 04/27/20 15 04/28/2015 zoya stero l + trigl yceri tristan, serum cholesterol, total 143 mg/dL 100-16 9 Not Available [facility] ([facility]) [address] [place], [address], 04/28/2015 07:43:19 04/27/20 15 04/28/2015 zoya stero l + trigl yceri tristan, serum triglyceride s 80 mg/dL 0-89 Not Available [facility] ([facility]) [address] [place], [address], 04/28/2015 07:43:19 04/27/20 15 04/28/2015 HbA1c (hemo globi n A1c), blood hemoglobin A1C 5.3 % 4.8-5. 6 PRE-D IABET ES: 5.7 - 6.4 DIABE SOCORRO: >6.4 GLYCE PRAKASH CONTR OL FOR ADULT S WITH DIABE SOCORRO: <7.0 Not Available [facility] ([facility]) [address] [place], [address], 04/28/2015 07:43:20 04/27/20 15 04/28/2015 HbA1c (hemo globi n A1c), blood estim. avg glu (EAG) 105 mg/dL Not Available [facility] ([facility]) [address] [facility], [place], [address], 04/28/2015 07:43:20 10/20/19 15 10/19/2014 CT, head and brain No observ ation record ed. avallala [facility] ([facility]) Scheduling [address] [place], [address], 10/21/2014 11:50:14 Result Notes None recorded. Problems Name Problem SNOMED Code Status Onset Date Resolution Date Notes Provider Name and Address Organization Details Recorded Time Eruption 013304968 Active ZANE Gut[place]rez, [place] [facility] 6 11:59:25 Eczema 39071182 Active Yesi Hager [place], [place] [facility] 6 11:59:25 Headache 47021977 Active Yesi H[place] [facility] 6 11:59:25 Acute urticaria 894241393 Active Yesi H[place] [facility] 6 11:59:25 Obesity 692168049 Active Yesi [place] [facility] 6 11:59:25 Viral gastroenter itis 997708561 Active Quinton Ko MD Attn: Accounting,[address] [place], [address], [place] [facility] 6 12:08:05 Problem Notes None recorded. Procedures Surgical History Date Name Laterality Status Provider Name and Address Organization Details Recorded Time Tonsillectomy completed Lennie Champion MD Attn: Accounting[address] [place], [address], [place] [facility] 10/05/2014 16:39:52 Imaging Results Imaging Date Name Status LastModified by Organiz ation Details LastModified Time 10/19/2014 CT, head and brain completed avallala [facility] ([facility]) Scheduling [address] [place], [address], 10/21/2014 11:50:14 Procedure Notes None recorded. Medical Equipment None Reported. Allergies No known drug allergies Medications Name Sig Start Date Stop Date Status Note LastModified by Organization Details LastModified Time hydrocort cre 1%hydrocortiso ne active Not Available Not Available Not Available amoxicillin cap 500mgamoxicill in active Not Available Not Available Not Available hydroco/apap tab 5-325mghydroco done/acetamino phen active Not Available Not Available Not Available triamcinolon cre 0.1%triamcinol one acetonide active Not Available Not Availabl e Not Available prednisone 20 mg tabs active Not Available Not Available Not Available naproxen tab 500mgnaproxen active Not Available Not Availabl e Not Available mupirocin 2 % oint active Not Available Not Available Not Available cyclobenzaprin e 10 mg tablet active Not Available Not Availab le Not Available prednisone 20 mg tablet Take 1 tablet twice a day by oral route for 3 days. active Not Available Not Available No t Available triamcinolone acetonide 0.1 % topical cream Apply by topical route to affected areas BID prn. active Not Available Not Available No t Available Microgestin FE 06/29 (28) 1 mg-20 mcg (21)/75 mg (7) tablet active Not Available Not Available Not Available hydrocortisone 1 % topical cream Apply by topical route to affected area bid. active Not Available Not Available No t Available nortriptyline 10 mg capsule active Not Available Not Availabl e Not Available naproxen sodium 550 mg tablet active Not Available Not Available Not Available polymyxin B sulfate 10,000 unit-trimethop rim 1 mg/mL eye drops active Not Available Not Available No t Available mupirocin 2 % topical ointment Apply by topical route to affected areas TID for 10 days. active Not Available Not Available No t Available methylpredniso lone 4 mg tablets in a dose pack active Not Available Not Available No t Available Vitals Date Recorded Respiratory rate Body weight Heart rate Body mass index (BMI) Body height Body temperature Systolic blood pressure Diastolic blood pressure Provider Name and Address Organization Details Last Updated DateTime 10/05/ 5 16 /min 40801.4 8001 g 80 /min 31.9 kg/m2 156.845 cm 98.6 [degF] 120 mm[Hg] 74 mm[Hg] Yesi Hager MA [facility] 5 16:25:36 Date Recorded Respiratory rate Body weight Body height Body mass index (BMI) Body temperature Heart rate Systolic blood pressure Diastolic blood pressure Provider Name and Address Organization Details Last Updated DateTime 5 16 /min 69711.6 6475 g 158.75 cm 31.5 kg/m2 99.1 [degF] 80 /min 104 mm[Hg] 82 mm[Hg] Kim Butler MA [facility] 5 14:58:41 Date Recorded Body weight Body temperature Heart rate Respiratory rate Body mass index (BMI) Body height Systolic blood pressure Diastolic blood pressure Provider Name and Address Organization Details Last Updated DateTime 6 02699.3 78207 g 99.1 [degF] 100 /min 16 /min 32 kg/m2 157.48 cm 112 mm[Hg] 74 mm[Hg] Yesi Hager MA [facility] 6 12:29:10 Date Recorded Respiratory rate Body weight Heart rate Body mass index (BMI) Body height Body temperature Systolic blood pressure Diastolic blood pressure Provider Name and Address Organization Details Last Updated DateTime 5 18 /min 85345.8 8764 g 86 /min 31 kg/m2 158.75 cm 98 [degF] 118 mm[Hg] 70 mm[Hg] Jazzy Nguyen MA [facility] 5 14:32:24 Date Recorded Respiratory rate Body weight Heart rate Body mass index (BMI) Body height Body temperature Systolic blood pressure Diastolic blood pressure Provider Name and Address Organization Details Last Updated DateTime 5 16 /min 02009.8 22073 g 84 /min 31.4 kg/m2 158.115 cm 98.4 [degF] 116 mm[Hg] 72 mm[Hg] Yesi Hager MA [facility] 5 15:03:00 Social History Question Answer Notes LastModified by Organizat ion Details LastModified Time Tobacco Smoking Status Never Smoker Yesi Hager MA null, [facility] 10/05/2014 16:22:28 Animal Exposure? No Information not available 10/05/2014 Do You Wear A Helmet When Biking? No Information not available 10/05/2014 Are You Or Have You Been Involved With Bullying? No Information not available 10/05/2014 What Is Your Level Of Caffeine Consumption? Occasional Information not available 10/05/2014 What Type Of Roller Printing Supervisor Do You Use? None Information not available 10/05/2014 What Type Of Diet Are You Following? REGULAR Information not available 10/05/2014 Are There Any Guns Present In Your Home? No Information not available 10/05/2014 What Is Your Home Situation? Mother Information not available 10/05/2014 Do You Use Insect Repellent Routinely? Yes Information not available 10/05/2014 Car Seat Type Or Seat Belt? Seat Belt Information not available 10/05/2014 Riding In Car Front Seat? Yes Information not available 10/05/2014 Pool Exposure No Information not available 10/05/2014 What Is The Name Of Your School? [employer] Information not available 10/05/2014 Do You Have Any Siblings? 1 Sister 1 Brother Information not available 10/05/2014 Do You Have Smoke And Carbon Monoxide Detectors In Your Home? Yes Information not available 10/05/2014 Are You Passively Exposed To Smoke? No Information not available 10/05/2014 Do You Use Sunscreen Routinely? Yes Information not available 10/05/2014 Year In School 11 Informatio n not available 10/05/2014 Sex: Unknown Functional Status None recorded. Mental Status None recorded. Family History Nothing Reported. Medical History Condition Response Coronary Artery Disease N Other N High Blood Pressure N Atrial Fibrillation N Kidney or Bladder Problems N Thyroid Problems N GI Problems N Depression N COPD N Blood Clots N Skin Problems N Anemia N Heart Attack (AR) N Anxiety Disorder N Diabetes N Muscle, Joint, or Bone Problems N Seizures/Epilepsy N Acid Reflux (GERD) N Cancer N Stroke N Asthma N Allergies N High Cholesterol N Hepatitis N Liver Disease N Headaches Y Osteoporosis N Heart Failure N Gynecological HistoryNo gynecological history recorded. Obstetrics History GPAL:G 0 P 0 0 0 0 Immunizations Vaccine Type Date Status Note Provider Nam e and Address Organization Details Recorded Time DTaP 3 completed [place]ANE [place] [facility] 08/23/2014 11:07:39 DTaP 9 completed Yesi [place] [facility] 08/23/2014 11:07:39 DTaP 1 completed [place]i [place] [facility] 08/23/2014 11:07:39 DTaP 9 completed Yesi [place] [facility] 08/23/2014 11:07:39 DTaP 9 completed [place]i [place] [facility] 08/23/2014 11:07:39 Hep A, ped/adol, 2 dose 2 completed ZANE [place] [facility] 08/23/2014 11:07:56 Hep A, ped/adol, 2 dose 7 completed Yesi [place] [facility] 08/23/2014 11:07:56 Hep B, adolescent or pediatric 9 completed Yesi [place] [facility] 08/23/2014 11:08:19 Hep B, adolescent or pediatric 9 completed [place]i [place] [facility] 08/23/2014 11:08:19 Hep B, adolescent or pediatric 0 completed [place]i [place] [facility] 08/23/2014 11:08:19 HPV, unspecified formulation 3 completed [place]i [place] [facility] 08/23/2014 11:08:46 HPV, unspecified formulation 2 completed [place]i [place] [facility] 08/23/2014 11:08:46 HPV, unspecified formulation 4 completed [place]ANE [place] [facility] 08/23/2014 11:08:46 influenza, unspecified formulation 4 completed ZANE Gutierrez, [place] - [facility] 08/23/2014 11:11:38 MMR 3 completed ZANE Gutierrez, [place] - [facility] 08/23/2014 11:11:55 MMR 0 completed ZANE Gutierrez, [place] - [facility] 08/23/2014 11:11:55 meningococcal MCV4, unspecified formulation 3 completed ZANE Gutierrez, [place] - [facility] 08/23/2014 11:12:14 IPV 9 completed [place]i [place] [facility] 08/23/2014 11:16:49 IPV 3 completed ZANE [place] [facility] 08/23/2014 11:16:49 IPV 9 completed [place] [facility] 08/23/2014 11:16:49 IPV 0 completed [place] [facility] 08/23/2014 11:16:49 Tdap 3 completed [place]ANE [place] [facility] 08/23/2014 11:17:37 varicella 4 completed [place] [facility] 08/23/2014 11:18:16 varicella 0 completed ZANE Gutierrez, [place] - [facility] 08/23/2014 11:18:16 Past Encounters Encounter ID Performer Location Encounter Start Date Encounter Closed Date Diagnosis/Indication Diagnosis SNOMED-CT Code Diagnosis ICD10 Code Diagnosis Note [id number] JYOTI Sky (Peds) [address] [place] [address] 08/09/2014 14:16:13 08/09/2014 15:47:43 Eruption 103836038 Mild cleanser, warm not hot shower. Moisturize often. Steriod cream triamcinol one BID prn x 1 week. [id number] JYOTI Sky (Peds) [address] [place] [address] 08/23/2014 14:54:26 08/23/2014 15:36:15 Eczema 40211483 Stop triamcinol one. Use hydrocorti sone and moisturize skin more. Patient aware. Can return to school tomorrow. [id number] Marie (Peds) [address] [place] [address] 10/05/2014 16:16:03 10/05/2014 17:28:15 Headache 57192014 Can take ibuprofen or Excedrin migraine for headaches. Keep headache journal. Notify if vomiting w/ headaches or if headaches wake pt. up from sleep. Acute urticaria 239165371 Will place on short course of steroids. Eczema 15008019 Reviewed skincare. Can use steroid cream prescribed on last visit BID for 2 weeks. Will also prescribe mupirocin ointment. [id number] MD Marie Hall (Peds) [address] [place] [address] 04/27/2015 14:28:50 04/28/2015 15:11:42 Headache 21963387 R51 Pt with negative CT 6 months ago. discussed having an execirse program to relieve stress and help with weight. Discussed poissibili ty BATRES is secondary to depression . Will r/o infection with cbc, monopsot and chem 8. Batres diary. Continue to use aleve prn. Obesity 603395465 E66.09 weight reduction with diet and exercise [id number] MD Marie Hall (Peds) [address] [place] [address] 08/19/2015 11:56:10 08/19/2015 15:41:05 Viral gastroenteritis 911783965 A08.39 rest, tylenol prn pain, white soda, BRAt diet. small sips frequqnetl y. Health Concerns Section Related Observation LastModified by Organization Detai ls LastModified Time None Recorded Concern Status LastModified by Organization Details LastModified Time None Recorded Advance Directives Directive None Recorded Payers Encounter Date Sequence Insurance Name Policy Number Policy Bobo Covered Member ID Bobo Member ID Guarantor Name 08/09/2014 1 [facility] (MEDICAID HMO) Brittny Bautista [id number] Inna Bautista 08/23/2014 1 [facility] (MEDICAID HMO) Brittny Bautista [id number] Inna Bautista 10/05/2014 1 [facility] (MEDICAID HMO) Brittny Bautista [id number] Inna Bautista 04/27/2015 1 [facility] (MEDICAID HMO) Brittny Bautista [id number] Inna Bautista 08/19/2015 1 [facility] (MEDICAID HMO) Brittny Bautista [id number] Inna Bautista Notes Date Note Type Note Provider Name a ok Address Organization Details Recorded Time 10/05/2014 text/html Pt. has h/o migraine headaches. Pt. has never had a CT scan or MRI. Pt. seen by neurology at [facility] 1 year ago. Recommended naproxen and cut out caffeine. Pt. completed those measures and still having headaches. Headaches occur daily and last 1 hour. Associated N/V, photophobia. Going into dark room helps. Naproxen helped, but pt. developed rash with it. Pt. has h/o eczema and recurrent hives. Pt. says she has tried all kinds of moisturizers and has used steroid cream, but rash still frequent. Pt. says headaches are so severe sometimes that they wake pt. from sleep. Has never been on imitrex. Pt. has aura of blurry vision, pain behind eyes and nasal congestion prior to onset of headaches. Lennie Champion MD Attn: Accounting,[address] [facility], [place], [address], [facility] 10/14/2014 07:57:46 04/27/2015 text/html c/O OF HAVING ISSUES WITH constant headaches sleeping alot and poor appetite for the past week. + emesis. No fever. Quinton Ko MD Attn: Accounting,[address] [facility], [place], [address], [facility] 04/27/2015 15:14:25 08/19/2015 text/html c/O OF nausea, S T, headaches, and diarrhea for the past 2 days. Had emesis yesterday. No fever. No cough or rhinorrhea. No known sick contacts. using OTC antidiarrheals. Quinton Ko MD Attn: Accounting,[address] [facility], [place], [address], [facility] 08/19/2015 14:10:51 OBGyn Episode No OBEpisode recorded.
--- OUTSIDE RECORDS SUMMARY | 2024-08-24 18:55 | XMS_ITS | Encounter Summary ---
Author Organization [facility] Address [address] [place] [address] Care Team Providers Care Electrical Technician Name Role Phone [facility], External Provider Primary Care Provider Hua loredo Encounter Details Date Type Department Care Team (Late st Contact Info) Description 10/11/2004 Outpatient Historical [facility] Family Medicine [facility] [address] [place] [address] Jeanine Adams MD [address] [facility] [place] [address] [place] [phone] Social History Tobacco Use Types Packs/Day Years Used Date Smoking Tobacco: Never Assessed Comments Unknown Sex and Gender Information Value Date Recorded Sex Assigned at Not on file Legal Sex Female 4:16 AM PHOTO PRINT SPECIALIST Gender Identity Not on file Sexual Orientation Not on file documented as of this encounter Plan of Treatment Not on file documented as of this encounter Visit Diagnoses Not on filedocumented in this encounter Care Teams Electrical Technician Relationship Specialty Start Date End Date Montez, External [place] [address] PCP - General 04/05/17 documented as of this encounter
--- OUTSIDE RECORDS SUMMARY | 2024-08-24 18:55 | XMS_ITS | Encounter Summary ---
Author Organization [facility] Address [address] [place] [address] Care Team Providers Care Environmental Safety Specialist Name Role Phone Montez External Provider Primary Care Provider Hua loredo Encounter Details Date Type Department Care Team (Late st Contact Info) Description 06/29/2003 Outpatient Historical [facility] Family Medicine [facility] [address] [address] [place] [address] [place] [address] [place] [address] Social History Tobacco Use Types Packs/Day Years Used Date Smoking Tobacco: Never Assessed Comments Unknown Sex and Gender Information Value Date Recorded Sex Assigned at Not on file Legal Sex Female 4:16 AM EMERGENCY RESPONSE COORDINATOR Gender Identity Not on file Sexual Orientation Not on file documented as of this encounter Plan of Treatment Not on file documented as of this encounter Visit Diagnoses Not on filedocumented in this encounter Care Teams Environmental Safety Specialist Relationship Specialty Start Date End Date Leana, [place] [address] PCP - General 04/05/17 documented as of this encounter
--- OUTSIDE RECORDS SUMMARY | 2024-08-24 18:55 | XMS_ITS | Encounter Summary ---
Author Organization [facility] Address [address] [place] [address] Care Team Providers Care Door Frame Assembler Machine Name Role Phone [facility], External Provider Primary Care Provider Hua loredo Encounter Details Date Type Department Care Team (Late st Contact Info) Description 10/11/2004 Outpatient Historical [facility] Family Medicine [facility] [address] [facility] [address] [place] [address] Jeanine Adams MD [address] [facility] [place] [address] [place] [phone] Social History Tobacco Use Types Packs/Day Years Used Date Smoking Tobacco: Never Assessed Comments Unknown Sex and Gender Information Value Date Recorded Sex Assigned at Not on file Legal Sex Female 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
--- OUTSIDE RECORDS SUMMARY | 2024-08-24 18:55 | XMS_ITS | Encounter Summary ---
Author Organization [facility] Address [address] [place] [address] Care Team Providers Care Insurance Account Specialist Name Role Phone [facility], [facility] Provider Primary Care Provider Hua loredo Encounter Details Date Type Department Care Team (Late st Contact Info) Description 10/11/2004 Outpatient Historical [facility] Family Medicine [facility] [address] [place] [address] Jeanine Adams MD [address] [facility] [place] [address] [place] [phone] Social History Tobacco Use Types Packs/Day Years Used Date Smoking Tobacco: Never Assessed Comments Unknown Sex and Gender Information Value Date Recorded Sex Assigned at Not on file Legal Sex Female 4:16 AM PEDIATRICIAN Gender Identity Not on file Sexual Orientation Not on file documented as of this encounter Plan of Treatment Not on file documented as of this encounter Visit Diagnoses Not on filedocumented in this encounter Care Teams Insurance Account Specialist Relationship Specialty Start Date End Date Montez, External [place] [address] PCP - General 04/05/17 documented as of this encounter
--- OUTSIDE RECORDS SUMMARY | 2024-08-24 18:55 | XMS_ITS | Clinical Summary ---
Author Organization [facility] Address [address] [place] [address] Care Team Providers Care Aerial Tram Operator Name Role Phone Unavailable Primary Care Provider Unavailabl e Social History Tobacco Use Types Packs/Day Years Used Date Smoking Tobacco: Never Assessed Comments Unknown Sex and Gender Information Value Date Recorded Sex Assigned at Not on file Legal Sex Female 7:30 PM CDT Gender Identity Not on file Sexual Orientation Not on file Plan of Treatment Health Maintenance Due Date Last Done Comments Cervical Cancer Screening Pa p Smear (Age 21 to 29) Every 3 Years 1998 Cervical Cancer Screening 1998 Annual Physical 2001 HPV Vaccines (1 - 3-dose series) 2013 Hepatitis C 2016 DTaP, Tdap and Td Vaccines ( 1 - Tdap) 2017 Hepatitis B Vaccines (1 of 3 - 19+ 3-dose series) 2017 COVID-19 Vaccine ( - 2023-2 5 season) 2024 Influenza Adult (#1) 2024 Meningococcal B Vaccine Aged Out No l onger eligible based on patient's age to complete this topic Meningococcal Vaccine Aged Out No titus mahnaz eligible based on patient's age to complete this topic Pneumococcal Vaccine: Pediat rics (0 to 5 Years) and At-Risk Patients (6 to 64 Years) Aged Out No longer eligible b ased on patient's age to complete this topic RSV Immunizations Under 20 Months Aged Out No longer eligible based on patient's age to complete this topic
--- OUTSIDE RECORDS SUMMARY | 2024-08-24 18:55 | XMS_ITS | Encounter Summary ---
Author Organization [facility] Address [address] [place] [address] Care Team Providers Care Garage Hand Name Role Phone [facility], External Provider Primary Care Provider Hua loredo Encounter Details Date Type Department Care Team (Late st Contact Info) Description 12/17/2002 Outpatient Historical [facility] Family Medicine [facility] [address] [facility] [address] [place] [address] [place] [address] [facility] [place] [address] Social History Tobacco Use Types Packs/Day Years Used Date Smoking Tobacco: Never Assessed Comments Unknown Sex and Gender Information Value Date Recorded Sex Assigned at Not on file Legal Sex Female 4:16 AM INVESTOR RELATIONS MANAGER Gender Identity Not on file Sexual Orientation Not on file documented as of this encounter Plan of Treatment Not on file documented as of this encounter Visit Diagnoses Not on filedocumented in this encounter Care Teams Garage Hand Relationship Specialty Start Date End Date [facility], [place] [address] PCP - General 04/05/17 documented as of this encounter
--- OUTSIDE RECORDS SUMMARY | 2024-08-24 18:55 | XMS_ITS | Encounter Summary ---
Author Organization [facility] Address [address] [place] [address] Care Team Providers Care Chief Operating Engineer Name Role Phone [facility], External Provider Primary Care Provider Hua loredo Encounter Details Date Type Department Care Team (Late st Contact Info) Description 11/03/1999 Outpatient Historical [facility] DEPT [place] [address] [address] [place] [address] Social History Tobacco Use Types Packs/Day Years Used Date Smoking Tobacco: Never Assessed Comments Unknown Sex and Gender Information Value Date Recorded Sex Assigned at Not on file Legal Sex Female 4:16 AM MASTER POLICE DETECTIVE Gender Identity Not on file Sexual Orientation Not on file documented as of this encounter Plan of Treatment Not on file documented as of this encounter Visit Diagnoses Not on filedocumented in this encounter Care Teams Chief Operating Engineer Relationship Specialty Start Date End Date [facility], [place] [address] PCP - General 04/05/17 documented as of this encounter
[2024-08-24] MEDS: KETOROLAC (*BKC) 60 MG/2 ML VIAL IM (20:28)
--- OUTSIDE RECORDS SUMMARY | 2024-08-24 20:53 | XMS_ITS | Encounter Summary ---
Author Organization [facility] Address [address] [place] [address] Care Team Providers Care Head Loft Worker Name Role Phone [facility] External Provider Primary Care Provider Hua loredo Encounter Details Date Type Department Care Team (Late st Contact Info) Description 09/02/2000 Outpatient Historical [facility] DEPT OF [place] [address] [place] [address] Social History Tobacco Use Types Packs/Day Years Used Date Smoking Tobacco: Never Assessed Comments Unknown Sex and Gender Information Value Date Recorded Sex Assigned at Not on file Legal Sex Female 4:16 AM ORNAMENTAL IRON WORKER APPRENTICE Gender Identity Not on file Sexual Orientation Not on file documented as of this encounter Plan of Treatment Not on file documented as of this encounter Visit Diagnoses Not on filedocumented in this encounter Care Teams Head Loft Worker Relationship Specialty Start Date End Date [facility], External Provider [address] [place] [place] [address] PCP - General 04/05/17 documented as of this encounter
--- OUTSIDE RECORDS SUMMARY | 2024-08-24 20:53 | XMS_ITS | Encounter Summary ---
Author Organization [facility] Address [address] [place] [address] Care Team Providers Care Global Upstream Marketing Manager Name Role Phone [facility] External Provider Primary Care Provider Hua loredo Encounter Details Date Type Department Care Team (Late st Contact Info) Description 07/13/2002 Outpatient Historical [facility] Family Medicine [facility] [address] [facility] [address] [place] [address] [place] [address] [place] [address] Social History Tobacco Use Types Packs/Day Years Used Date Smoking Tobacco: Never Assessed Comments Unknown Sex and Gender Information Value Date Recorded Sex Assigned at Not on file Legal Sex Female 4:16 AM INFORMATION DIRECTOR Gender Identity Not on file Sexual Orientation Not on file documented as of this encounter Plan of Treatment Not on file documented as of this encounter Visit Diagnoses Not on filedocumented in this encounter Care Teams Global Upstream Marketing Manager Relationship Specialty Start Date End Date Leana, External [place] [address] PCP - General 04/05/17 documented as of this encounter
--- OUTSIDE RECORDS SUMMARY | 2024-08-24 20:53 | XMS_ITS | Encounter Summary ---
Author Organization [facility] Address [address] [place] [address] Care Team Providers Care Waterproofer Name Role Phone [facility], External Provider Primary Care Provider Hua loredo Encounter Details Date Type Department Care Team (Late st Contact Info) Description 12/16/2006 Outpatient Historical [facility] Family Medicine [facility] [address] [facility] [address] [place] [address] Jeanine Adams MD [address] [facility] [place] [address] [place] [phone] Social History Tobacco Use Types Packs/Day Years Used Date Smoking Tobacco: Never Assessed Comments Unknown Sex and Gender Information Value Date Recorded Sex Assigned at Not on file Legal Sex Female 4:16 AM PRINT SUPPORT SPECIALIST Gender Identity Not on file Sexual Orientation Not on file documented as of this encounter Plan of Treatment Not on file documented as of this encounter Visit Diagnoses Not on filedocumented in this encounter Care Teams Waterproofer Relationship Specialty Start Date End Date Montez, [place] [address] PCP - General 04/05/17 documented as of this encounter
--- OUTSIDE RECORDS SUMMARY | 2024-08-24 20:53 | XMS_ITS | Encounter Summary ---
Author Organization [facility] Address [address] [place] [address] Care Team Providers Care Technician Semiconductor Development Name Role Phone [facility], External Provider Primary Care Provider Hua loredo Encounter Details Date Type Department Care Team (Late st Contact Info) Description 10/13/2008 Outpatient Historical [place] [address] [place] [address] Social History Tobacco Use Types Packs/Day Years Used Date Smoking Tobacco: Never Alcohol Use Standard Drinks/Week Comments No 0 (1 standard drink = 0.6 oz pur e alcohol) Comments No Sex and Gender Information Value Date Recorded Sex Assigned at Not on file Legal Sex Female 4:16 AM COMIC ILLUSTRATOR Gender Identity Not on file Sexual Orientation Not on file documented as of this encounter Plan of Treatment Not on file documented as of this encounter Visit Diagnoses Not on filedocumented in this encounter Care Teams Technician Semiconductor Development Relationship Specialty Start Date End Date [facility], [place] [address] PCP - General 04/05/17 documented as of this encounter
--- OUTSIDE RECORDS SUMMARY | 2024-08-24 20:53 | XMS_ITS | Encounter Summary ---
Author Organization [facility] Address [address] [place] [address] Care Team Providers Care Departure Clerk Name Role Phone [facility], External Provider Primary Care Provider Hua loredo Encounter Details Date Type Department Care Team (Late st Contact Info) Description 11/03/2003 Outpatient Historical [facility] Medicine [facility] [address] [place] [address] [place] [address] [place] [address] Social History Tobacco Use Types Packs/Day Years Used Date Smoking Tobacco: Never Assessed Comments Unknown Sex and Gender Information Value Date Recorded Sex Assigned at Not on file Legal Sex Female 4:16 AM MUSICAL PERFORMER Gender Identity Not on file Sexual Orientation Not on file documented as of this encounter Plan of Treatment Not on file documented as of this encounter Procedures Procedure Name Priority Date/Time Associated Diagnosis Comments CHG VARICELLA VACCINE LIVE SQ VFC 11/03/2003 12:00 AM CDT documented in this encounter Visit Diagnoses Not on filedocumented in this encounter Care Teams Departure Clerk Relationship Specialty Start Date End Date Montez, External [place] [address] PCP - General 04/05/17 documented as of this encounter
--- OUTSIDE RECORDS SUMMARY | 2024-08-24 20:53 | XMS_ITS | Encounter Summary ---
Author Organization [facility] Address [address] [place] [address] Care Team Providers Care Rail Operator Name Role Phone [facility], External Provider Primary Care Provider U gayleailable Encounter Details Date Type Department Care Team (Late st Contact Info) Description 12/18/2006 Outpatient Historical [facility] Carmen Mary MD [address] [place] [address] Er, Authorized P NO ADDRESS ON FILE Abdominal Pain, Unspecified Site (Primary Dx) Social History Tobacco Use Types Packs/Day Years Used Date Smoking Tobacco: Never Assessed Comments Unknown Sex and Gender Information Value Date Recorded Sex Assigned at Not on file Legal Sex Female 4:16 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 Gender Identity Not on file Sexual Orientation [...] HEMATOLOGY ORDERABLES Edit ed Performing Organization Address [facility] de Phone Number INTERFACE SYSTEM Refer to clinic/hospital department * CBC WITH DIFFERENTIAL (12/18/2006 3:59 PM CDT) [facility] NRBC 0 <=0 /100 WBC INTERFACE SYSTEM 12/18/2006 3:59 PM CDT us Carmen Mary MD HEMATOLOGY ORDERABLES Edit ed Performing Organization Address [facility] Phone Number INTERFACE SYSTEM Refer to clinic/hospital department * (ABNORMAL) CBC WITH DIFFERENTIAL (12/18/2006 3:59 PM CDT) [facility] WBC 10.5 4.5 - 13.5 K/uL INTERFACE [...] HEMATOLOGY ORDERABLES Edit ed Performing Organization Address [facility] Co de Phone Number INTERFACE SYSTEM Refer [...] MD URINE ORDERABLES Edited Performing Organization Address [facility] Co de Phone Number INTERFACE SYSTEM Refer to clinic/hospital department documented in this encounter Visit Diagnoses Diagnosis Abdominal pain, unspecified site- Primary documented in this encounter Care Teams Rail Operator Relationship Specialty Start Date End Date [facility], External Provider [address] [place] [address] PCP - General 04/05/17 documented as of this encounter
--- OUTSIDE RECORDS SUMMARY | 2024-08-24 20:53 | XMS_ITS | Encounter Summary ---
Author Organization [facility] Address [address] [place] [address] Care Team Providers Care Channel Sales Manager Name Role Phone [facility], External Provider Primary Care Provider Hua loredo Encounter Details Date Type Department Care Team (Late st Contact Info) Description 01/28/[address] [facility] Family Medicine [facility] [address] [facility] [address] [place] [address] [place] [address] 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
--- OUTSIDE RECORDS SUMMARY | 2024-08-24 20:53 | XMS_ITS | Encounter Summary ---
Author Organization [facility] Address [address] [place] [address] Care Team Providers Care Automotive Manager Name Role Phone [facility], [facility] Provider Primary Care Provider Hua loredo Encounter Details Date Type Department Care Team (Late st Contact Info) Description 12/17/2002 Outpatient Historical [facility] Family Medicine [facility] [address] [facility] [address] [place] [address] [place] [address] [address] [facility] [place] [address] Social History Tobacco Use Types Packs/Day Years Used Date Smoking Tobacco: Never Assessed Comments Unknown Sex and Gender Information Value Date Recorded Sex Assigned at Not on file Legal Sex Female 4:16 AM HOMEOPATHIC DOCTOR Gender Identity Not on file Sexual Orientation Not on file documented as of this encounter Plan of Treatment Not on file documented as of this encounter Visit Diagnoses Not on filedocumented in this encounter Care Teams Automotive Manager Relationship Specialty Start Date End Date [facility], [place] [address] PCP - General 04/05/17 documented as of this encounter
--- OUTSIDE RECORDS SUMMARY | 2024-08-24 20:53 | XMS_ITS | Encounter Summary ---
Author Organization [facility] Address [address] [place] [address] Care Team Providers Care Machine Maintenance Name Role Phone [facility], External Provider Primary Care Provider Hua loredo Encounter Details Date Type Department Care Team (Late st Contact Info) Description 10/11/2004 Outpatient Historical [facility] Family Medicine [facility] [address] [address] [facility] [address] [place] [address] Jeanine Adams MD [address] [place] [address] [place] [address] Social History Tobacco Use Types Packs/Day Years Used Date Smoking Tobacco: Never Assessed Comments Unknown Sex and Gender Information Value Date Recorded Sex Assigned at Not on file Legal Sex Female 4:16 AM INSURANCE ACCOUNT REPRESENTATIVE Gender Identity Not on file Sexual Orientation Not on file documented as of this encounter Plan of Treatment Not on file documented as of this encounter Visit Diagnoses Not on filedocumented in this encounter Care Teams Machine Maintenance Relationship Specialty Start Date End Date Montez, External [place] [address] PCP - General 04/05/17 documented as of this encounter
--- OUTSIDE RECORDS SUMMARY | 2024-08-24 20:53 | XMS_ITS | Encounter Summary ---
Author Organization [employer] Address [address] [place] [address] Care Team Providers Care Metal Furniture Panel Coverer Name Role Phone [facility], External Provider Primary Care Provider Hua loredo Encounter Details Date Type Department Care Team (Late st Contact Info) Description 11/03/1999 Outpatient Historical [facility] DEPT [place] [address] [address] [place] [address] Social History Tobacco Use Types Packs/Day Years Used Date Smoking Tobacco: Never Assessed Comments Unknown Sex and Gender Information Value Date Recorded Sex Assigned at Not on file Legal Sex Female 4:16 AM MISSION ASSESSMENT SPECIALIST Gender Identity Not on file Sexual Orientation Not on file documented as of this encounter Plan of Treatment Not on file documented as of this encounter Visit Diagnoses Not on filedocumented in this encounter Care Teams Metal Furniture Panel Coverer Relationship Specialty Start Date End Date [facility], [place] [address] PCP - General 04/05/17 documented as of this encounter
--- OUTSIDE RECORDS SUMMARY | 2024-08-24 20:53 | XMS_ITS | Referral Summary ---
Author Organization [facility] Address [address] [place] [address] Care Team Providers Care Assistant Community Director Name Role Phone No, Physician Primary Care Provider [phone] Allergies Active Allergy Reactions Criticality Noted Date [...] on file Legal Sex Female 5:58 PM SOURCING ANALYST Gender Identity Not on file Sexual [...] Plan of Treatment Not on file Insurance [facility] MEDICAID [employer] [facility] CHOICE PLUS Care Teams Assistant Community Director Relationship Specialty Start Date End Date No, Physician PCP - General 05/16/18
--- OUTSIDE RECORDS SUMMARY | 2024-08-24 20:53 | XMS_ITS | Encounter Summary ---
Author Organization [employer] Address [address] [place] [address] Care Team Providers Care Inflated Pad Buffer Name Role Phone [facility], External Provider Primary Care Provider Hua loredo Encounter Details Date Type Department Care Team (Late st Contact Info) Description 12/27/1999 Outpatient Historical HIS [facility] DEPT OF FAMILY MEDICINE Lm Leone MD [address] [place] [address] Social History Tobacco Use Types Packs/Day Years Used Date Smoking Tobacco: Never Assessed Comments Unknown Sex and Gender Information Value Date Recorded Sex Assigned at Not on file Legal Sex Female 4:16 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
--- OUTSIDE RECORDS SUMMARY | 2024-08-24 20:53 | XMS_ITS | Clinical Summary ---
Author Organization [facility] Address [address] [place] [address] Care Team Providers Care Tour Operator Name Role Phone No, Physician Primary Care Provider [phone] Allergies Active Allergy Reactions Criticality Noted Date [...] on file Legal Sex Female 5:58 PM DEALERSHIP MANAGER Gender Identity Not on file Sexual [...] patient's age to complete this topic Insurance [facility] MEDICAID [facility] OTHER Address: [address] [address] [place] [address] [employer] [facility] CHOICE PLUS [facility] HMO/PPO Address: [address] [address] [place] [address] Care Teams Tour Operator Relationship Specialty Start Date End Date No, Physician PCP - General 05/16/18
--- OUTSIDE RECORDS SUMMARY | 2024-08-24 20:53 | XMS_ITS | Encounter Summary ---
Author Organization [employer] Address [address] [place] [address] Care Team Providers Care Side Boss Name Role Phone Leana External Provider Primary [...] on file Legal Sex Female 4:16 AM PCTS Gender Identity Not on file Sexual Orientation Not on file documented as of this encounter Plan of Treatment Not on file documented as of this encounter Visit Diagnoses Diagnosis Fever and other physiologic disturbances of temperature regulation- Primary documented in this encounter Care Teams Side Boss Relationship Specialty Start Date End Date Leana External Provider [address] [place] [address] PCP - General 04/05/17 documented as of this encounter
--- OUTSIDE RECORDS SUMMARY | 2024-08-24 20:53 | XMS_ITS | Encounter Summary ---
Author Organization [employer] Address [address] [place] [address] Care Team Providers Care Surgical Training Specialist Name Role Phone [facility], External Provider Primary Care Provider Hua loredo Encounter Details Date Type Department Care Team (Late st Contact Info) Description 11/04/1999 Outpatient Historical [facility] Rafal Ahuja MD [address] [place] [address] Er, Authorized P NO ADDRESS ON FILE Unspecified viral infection, in conditions classified elsewhere and of unspecified site (Primary Dx) Social History Tobacco Use Types Packs/Day Years Used Date Smoking Tobacco: Never Assessed Comments Unknown Sex and Gender Information Value Date Recorded Sex Assigned at Not on file 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
--- OUTSIDE RECORDS SUMMARY | 2024-08-24 20:53 | XMS_ITS | Encounter Summary ---
Author Organization [employer] Address [address] [place] [address] Care Team Providers Care Hospice Care Sales Consultant Name Role Phone [facility], External Provider Primary Care Provider Hua loredo Encounter Details Date Type Department Care Team (Late st Contact Info) Description 01/02/1999 Outpatient Historical HIS [facility] DEPT OF FAMILY MEDICINE Lm Leone MD [address] [place] [address] Social History Tobacco Use Types Packs/Day Years Used Date Smoking Tobacco: Never Assessed Comments Unknown Sex and Gender Information Value Date Recorded Sex Assigned at Not on file 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
--- OUTSIDE RECORDS SUMMARY | 2024-08-24 20:53 | XMS_ITS | Encounter Summary ---
Author Organization [facility] Address [address] [place] [address] Care Team Providers Care Proof Reader Name Role Phone [facility] Primary Care Provider Hua loredo Encounter Details Date Type Department Care Team (Late st Contact Info) Description 10/11/2004 Outpatient Historical [facility] Family Medicine [facility] [address] [place] [address] Jeanine Adams MD [address] [place] [phone] Social History Tobacco Use Types Packs/Day Years Used Date Smoking Tobacco: Never Assessed Comments Unknown Sex and Gender Information Value Date Recorded Sex Assigned at Not on file 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
--- OUTSIDE RECORDS SUMMARY | 2024-08-24 20:53 | XMS_ITS | Encounter Summary ---
Author Organization [facility] Address [address] [place] [address] Care Team Providers Care Spindle Carver Name Role Phone [facility] External Provider Primary Care Provider Hua loredo Encounter Details Date Type Department Care Team (Late st Contact Info) Description 06/29/2003 Outpatient Historical 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
--- OUTSIDE RECORDS SUMMARY | 2024-08-24 20:53 | XMS_ITS | Clinical Summary ---
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 Gender Identity Not on file Sexual Orientation Not on file Occupation Industry Job Start Date Job End Date Not on file Not on file Not on file Not on file Last Filed Vital Signs Vital Sign Reading Time Taken Comments Blood Pressure 128/66 06/23/2017 3:45 PM BANQUET FOOD SERVER Pulse 86 04/05/2017 9:11 AM CDT Temperature 36.6 C (97.8 F) 06/23/2017 12:24 PM BANQUET FOOD SERVER Respiratory Rate 16 06/23/2017 3:45 PM BANQUET FOOD SERVER Oxygen Saturation 99% 06/23/2017 3:45 PM BANQUET FOOD SERVER Inhaled Oxygen Concentration - - Weight 83 kg (183 lb) 06/23/2017 12:24 PM BANQUET FOOD SERVER Height 154.9 cm (5' 1 ) 06/23/2017 12:24 PM BANQUET FOOD SERVER Body Mass Index 34.58 06/23/2017 12:24 PM BANQUET FOOD SERVER Plan of Treatment Health Maintenance Due Date Last Done Comments DTAP/TDAP/TD VACCINES (6 - Tdap) 2009 01/28/2003, 11/11/2000, 03/13/1999, Additional history exists HPV VACCINES (2 - 2-dose series) 01/11/2012 07/13/19 12 CERVICAL CANCER SCREENING 09/04/2019 INFLUENZA VACCINE (#1) 2024 HEPATITIS B VACCINES Completed 09/12/1999, 1998, 1998 Advance Directives For more information, please contact: [phone] * Full Code (Latest Code Status on File) Date Activated Date Inactivated Comments 01/04/2012 10:25 AM 01/07/2012 11:50 AM Care Teams Packager And Strapper Relationship Specialty Start Date End Date [facility], External Provider [address] [place] [address] PCP - General 04/05/17
--- OUTSIDE RECORDS SUMMARY | 2024-08-24 20:53 | XMS_ITS | Encounter Summary ---
Author Organization [facility] Address [address] [place] [address] Care Team Providers Care Solvent Plant Operator Name Role Phone [facility] Primary Care Provider Hua loredo Encounter Details Date Type Department Care Team (Late st Contact Info) Description 10/11/2004 Outpatient Historical [facility] Family Medicine [facility] [address] [place] [address] Jeanine Adams MD [address] 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
--- OUTSIDE RECORDS SUMMARY | 2024-08-24 20:53 | XMS_ITS | Encounter Summary ---
Author Organization [facility] Address [address] [place] [address] Care Team Providers Care Mechanic Driver Name Role Phone [facility] Primary Care Provider Hua loredo Encounter Details Date Type Department Care Team (Late st Contact Info) Description 12/16/2006 Outpatient Historical [facility] Family [facility] [address] [place] [address] Jeanine Adams MD [address] [place] [address] Social History Tobacco Use Types Packs/Day Years Used Date Smoking Tobacco: Never Assessed Comments Unknown Sex and Gender Information Value Date Recorded Sex Assigned at Not on file 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
--- OUTSIDE RECORDS SUMMARY | 2024-08-24 20:53 | XMS_ITS | Encounter Summary ---
Author Organization [facility] Address [address] [place] [address] Care Team Providers Care Client Service Administrator Name Role Phone [facility], [facility] Provider Primary Care Provider Hua loredo Encounter Details Date Type Department Care Team (Late st Contact Info) Description 10/23/2005 Outpatient Historical [facility] Medicine [facility] [address] [place] [address] Melissa Vásquez MD [address] [place] [address] Social History Tobacco Use Types Packs/Day Years Used Date Smoking Tobacco: Never Assessed Comments Unknown Sex and Gender Information Value Date Recorded Sex Assigned at Not on file 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
--- OUTSIDE RECORDS SUMMARY | 2024-08-24 20:53 | XMS_ITS | Clinical Summary ---
Author Organization [facility] Address [address] [place] [address] Care Team Providers Care Shaper And Presser Name Role Phone Unavailable Primary Care Provider [...]
--- OUTSIDE RECORDS SUMMARY | 2024-08-24 20:53 | XMS_ITS | Encounter Summary ---
Author Organization [facility] Address [address] [place] [address] Care Team Providers Care Hospitalist Physician Name Role Phone [facility] External Provider Primary Care Provider Hua loredo Encounter Details Date Type Department Care Team (Late st Contact Info) Description 01/28/2003 Outpatient Historical [facility] Family Medicine [facility] [address] [address] [place] [address] [place] [address] 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
[2024-08-24 21:44] VITALS: BP 130/64; PULSE 78; RESP 18; O2SAT 100
== END 2024-08-24 21:46 | disposition home or self-care (01) ==
PROVIDERS: Emergency Provider Emergency Medicine
DX: S93.402A Sprain of unspecified ligament of left ankle, initial encounter (principal); S96.912A Strain of unspecified muscle and tendon at ankle and foot level, left foot, initial encounter; X50.9XXA Other and unspecified overexertion or strenuous movements or postures, initial encounter
CPT/HCPCS: 73590; 73610; 96372; 99283; J1885